=== PATIENT | female | born 1970 | race Asian ===

== ENCOUNTER 2017-02-27 22:07 | Outpatient (CLI) | payer OTHER ==
[2017-02-27 23:08] LABS: AMORPHOUS SEDIMENT,URINE TRACE /HPF; APPEARANCE,URINE SLIGHTLY-CLOUDY; BILIRUBIN,URINE NEGATIVE (NEGATIVE); COLOR,URINE YELLOW; GLUCOSE, URINE NEGATIVE (NEGATIVE); KETONES,URINE NEGATIVE (NEGATIVE); LEUKOCYTE ESTERASE,URINE SMALL (NEGATIVE); NITRITE,URINE NEGATIVE (NEGATIVE); PROTEIN,URINE NEGATIVE (NEGATIVE); URINE SPECIFIC GRAVITY 1.021; UROBILINOGEN,URINE NEGATIVE mg/dL (<2.0)
--- NOTE | 2017-02-27 23:26 | Non Stress Test Report ---
Non Stress Test Datetime Report Generated by CPN: 02/27/2017 23:25 DEMOGRAPHIC EGA NST: 35.4 INDICATION Indication for Study: Ordered by Provider; Other Indication for Study (NST) Other: LC MONITORING Monitor Explained: Monitor Explained; Test Explained; Patient Verbalized Understanding Time on Monitor: 02/27/2017 22:30 Time off Monitor: 02/27/2017 23:18 NST Duration: 48 NST INTERVENTIONS NST Interventions: PO Hydration; Reposition Patient Physician Notified NST: Dr Trujillo BABY A: [id number] BABY A Movement : Present Contraction Frequency : Irregular with irritability Accelerations : 15X15 Decelerations : None Variability : Moderate 6-25bpm NST Review: Meets Criteria for Reactive NST NST Review and Verified By : Adelaida Rashid RN Results: Reactive NST REPORT Report Trigger: Send Report
[2017-02-27 23:42] LABS: URINE AMPHETAMINES SCREEN NEGATIVE; URINE BARBITURATES SCREEN NEGATIVE; URINE BENZODIAZEPINES SCREEN NEGATIVE; URINE COCAINE SCREEN NEGATIVE; URINE MARIJUANA (THC) SCREEN NEGATIVE; URINE METHADONE SCREEN NEGATIVE; URINE PHENCYCLIDINE SCREEN NEGATIVE
== END 2017-02-27 22:30 | disposition home or self-care (01) ==
LOC: LC 22:07
PROVIDERS: ATTEND Obstetrics & Gynecology
PROC: 4A1HXCZ Monitoring of Products of Conception, Cardiac Rate, External Approach (ICD-10-PCS; principal; 2017-02-27)
DX: O47.03 False labor before 37 completed weeks of gestation, third trimester (principal); O09.523 Supervision of elderly multigravida, third trimester; Z3A.35 35 weeks gestation of pregnancy
CPT/HCPCS: 80307; 81001

== ENCOUNTER 2017-03-06 10:18 | Outpatient (CLI) | payer OTHER ==
--- NOTE | 2017-03-06 11:02 | Non Stress Test Report ---
Non Stress Test Datetime Report Generated by CPN: 03/06/2017 11:01 DEMOGRAPHIC EGA NST: 36.4 INDICATION Indication for Study: Ordered by Provider MONITORING Monitor Explained: Monitor Explained; Test Explained; Patient Verbalized Understanding Time on Monitor: 03/06/2017 10:30 Time off Monitor: 03/06/2017 10:50 NST Duration: 20 NST INTERVENTIONS NST Interventions: PO Hydration Physician Notified NST: Dr. Becker BABY A: [id number] BABY A Movement : Present Contraction Frequency : irregular FHR Baseline : 135 Accelerations : 15X15 Decelerations : None Variability : Moderate 6-25bpm NST Review: Meets Criteria for Reactive NST NST Review and Verified By : Don BELLO NST Results: Reactive NST REPORT Report Trigger: Send Report
== END 2017-03-06 11:00 | disposition home or self-care (01) ==
LOC: LC 10:18
PROVIDERS: ATTEND Student in an Organized Health Care Education/Training Program
PROC: 4A1HXCZ Monitoring of Products of Conception, Cardiac Rate, External Approach (ICD-10-PCS; principal; 2017-03-06)
DX: O47.03 False labor before 37 completed weeks of gestation, third trimester (principal); O09.523 Supervision of elderly multigravida, third trimester; Z3A.36 36 weeks gestation of pregnancy
CPT/HCPCS: 59025

== ENCOUNTER 2017-03-10 14:31 | Outpatient (CLI) | payer OTHER ==
[2017-03-10 15:23] LABS: AMORPHOUS SEDIMENT,URINE TRACE /HPF; APPEARANCE,URINE SLIGHTLY-CLOUDY; BILIRUBIN,URINE NEGATIVE (NEGATIVE); COLOR,URINE YELLOW; GLUCOSE, URINE NEGATIVE (NEGATIVE); KETONES,URINE NEGATIVE (NEGATIVE); LEUKOCYTE ESTERASE,URINE TRACE (NEGATIVE); NITRITE,URINE NEGATIVE (NEGATIVE); PROTEIN,URINE NEGATIVE (NEGATIVE); URINE SPECIFIC GRAVITY 1.021; UROBILINOGEN,URINE NEGATIVE mg/dL (<2.0)
[2017-03-10 15:28] LABS: AMNISURE (ROM) NEGATIVE (NEGATIVE)
[2017-03-10 15:46] LABS: URINE AMPHETAMINES SCREEN NEGATIVE; URINE BARBITURATES SCREEN NEGATIVE; URINE BENZODIAZEPINES SCREEN NEGATIVE; URINE COCAINE SCREEN NEGATIVE; URINE MARIJUANA (THC) SCREEN NEGATIVE; URINE METHADONE SCREEN NEGATIVE; URINE PHENCYCLIDINE SCREEN NEGATIVE
--- NOTE | 2017-03-10 15:51 | Non Stress Test Report ---
Non Stress Test Datetime Report Generated by CPN: 03/10/2017 15:51 DEMOGRAPHIC EGA NST: 37.1 INDICATION Indication for Study: Ordered by Provider; Other Indication for Study (NST) Other: AMA; REPEAT NST MONITORING Monitor Explained: Monitor Explained; Test Explained; Patient Verbalized Understanding Time on Monitor: 03/10/2017 14:51 Time off Monitor: 03/10/2017 15:41 NST Duration: 50 NST INTERVENTIONS NST Interventions: PO Hydration; Reposition Patient Physician Notified NST: Don FRASER CNM BABY A: [id number] Movement : Present Contraction Frequency : X2 FHR Baseline : 145 Accelerations : 15X15 Decelerations : None Variability : Moderate 6-25bpm NST Review: Meets Criteria for Reactive NST NST Review and Verified By : ERNA ARAUJO RN NST Results: Reactive NST REPORT Report Trigger: Send Report
== END 2017-03-10 15:49 | disposition home or self-care (01) ==
LOC: LC 14:31
PROVIDERS: ATTEND Obstetrics & Gynecology Gynecology
PROC: 4A1HXCZ Monitoring of Products of Conception, Cardiac Rate, External Approach (ICD-10-PCS; principal; 2017-03-10)
DX: O09.523 Supervision of elderly multigravida, third trimester (principal); Z3A.37 37 weeks gestation of pregnancy
CPT/HCPCS: 59025; 80307; 81001; 84112

== ENCOUNTER 2017-03-17 16:59 | Inpatient (IN) | payer OTHER ==
[2017-03-17] MEDS ORDERED: DINOPROSTONE 10 MG VAGINAL INSERT.SR PV PRN (17:16)
[2017-03-17] MEDS ORDERED: RINGERS SOLUTION,LACTATED 300 ML IV ONE (17:16)
[2017-03-17] MEDS ORDERED: DINOPROSTONE 10 MG VAGINAL INSERT.SR ONE (17:51)
[2017-03-17 17:55] LABS: ABSOLUTE BASOPHILS # (AUTO) 0.1 10^3/uL (0.0-0.2); ABSOLUTE LYMPHOCYTES (AUTO) 1.5 10^3/uL (0.5-4.7); ABSOLUTE MONOCYTES (AUTO) 0.5 10^3/uL (0.1-1.4); ABSOLUTE NEUT (AUTO) 6.3 10^3/uL (1.7-8.2); BASOPHILS % (AUTO) 0.6 % (0-2); EOSINOPHILS % (AUTO) 0.3 % (0-6); HEMATOCRIT 37.2 % (36.0-47.0); HEMOGLOBIN 12.6 g/dL (12.0-15.5); LYMPHOCYTES % (AUTO) 18.2 % (13-45); MEAN CORPUSCULAR HEMOGLOBIN 30.9 pg (27.0-33.4); MEAN CORPUSCULAR HGB CONC 33.8 g/dL (32.0-36.0); MEAN CORPUSCULAR VOLUME 91 fl (80-97); MONOCYTES % (AUTO) 5.4 % (3-13); PLATELET COUNT 224 10^3/uL (150-450); RED BLOOD COUNT 4.07 10^6/uL (3.72-5.28); RED CELL DISTRIBUTION WIDTH 13.1 % (11.5-14.0); SEGMENTED NEUTROPHILS % (AUTO) 75.5 % (42-78); TOTAL CELLS COUNTED % (AUTO) 100 %; WHITE BLOOD COUNT 8.3 10^3/uL (4.0-10.5)
[2017-03-17 18:31] LABS: APPEARANCE,URINE SLIGHTLY-CLOUDY; BILIRUBIN,URINE NEGATIVE (NEGATIVE); COLOR,URINE YELLOW; GLUCOSE, URINE NEGATIVE (NEGATIVE); KETONES,URINE NEGATIVE (NEGATIVE); LEUKOCYTE ESTERASE,URINE TRACE (NEGATIVE); NITRITE,URINE NEGATIVE (NEGATIVE); PROTEIN,URINE NEGATIVE (NEGATIVE); URINE SPECIFIC GRAVITY 1.027; UROBILINOGEN,URINE NEGATIVE mg/dL (<2.0)
[2017-03-17 18:36] LABS: URINE AMPHETAMINES SCREEN NEGATIVE; URINE BARBITURATES SCREEN NEGATIVE; URINE BENZODIAZEPINES SCREEN NEGATIVE; URINE COCAINE SCREEN NEGATIVE; URINE MARIJUANA (THC) SCREEN NEGATIVE; URINE METHADONE SCREEN NEGATIVE; URINE PHENCYCLIDINE SCREEN NEGATIVE
[2017-03-17] MEDS: RINGERS SOLUTION,LACTATED 1,000 ML IV PRN (23:24)
[2017-03-18] MEDS ORDERED: BUPIVACAINE HCL 0.25 % INJ/PF (2.5 MG/1 ML) 30 ML VIAL ONE (09:33)
[2017-03-18] MEDS ORDERED: FENTANYL/BUPIVACAINE/NS/PF 200 MCG/100 ML RTUINJ EPI ONE (09:33)
[2017-03-18] MEDS ORDERED: EPHEDRINE SULFATE INJ 50 MG/1 ML AMPULE ONE (09:33)
[2017-03-18] MEDS: RINGERS SOLUTION,LACTATED 1,000 ML IV PRN ×2 (10:00→16:40)
[2017-03-18] MEDS ORDERED: MISOPROSTOL 0.2 MG TABLET ONE (10:59)
[2017-03-18] MEDS ORDERED: OXYTOCIN/NORMAL SALINE 20 UNIT/1,000 ML RTUINJ ONE (10:59)
[2017-03-18] MEDS ORDERED: LIDOCAINE 1% INJ-PF (10 MG/ML) 30 ML SDV ONE (10:59)
--- NOTE | 2017-03-18 11:03 | L&D Progress Notes ---
PROGRESS NOTES Datetime Report Generated by CPN: 03/18/2017 11:03 PROGRESS NOTE Impression: Normal Progression of Labor Procedures: Artificial ROM Plan Other: start pit Vital Signs : Reviewed Comment: Feeling much better with epidural SVE AROM, bloody fluid Start pitocin Small amount bloody fluid VAGINAL EXAM Dilatation: 6 Dilatation: 1 Effacement: 100 Effacement: 0 Station: 0 Station: -1 Contractions: 2-5 MEMBRANES Pooling: Negative Membranes: Ruptured Membranes: Intact Amniotic Fluid Color: Bloody FETUS A FHR - Baseline: 145 Monitoring: External US Accelerations: 15X15 Decelerations: None : 38.0 Estimated Weight (gm): 2800 Presentation: Vertex SIGNATURE SIGNATURE: [id number] SIGNATURE: ,[id number] SIGNATURE: [id number] SIGNATURE: ,[id number] Assignment: Shahana Becker MD Signature: with User ID: [email or web address] : with User ID: [email or web address]
[2017-03-18] MEDS: OXYTOCIN/NORMAL SALINE 20 UNIT/1,000 ML RTUINJ IV PRN ×2 (11:08→16:40)
[2017-03-18] MEDS ORDERED: ACETAMINOPHEN WITH CODEINE #3 TABLET PO PRN ×2 (15:18)
[2017-03-18] MEDS ORDERED: ACETAMINOPHEN 650 MG SUPP.RECT PR PRN (15:18)
[2017-03-18] MEDS ORDERED: PROMETHAZINE HCL 25 MG TABLET PO PRN (15:18)
[2017-03-18] MEDS ORDERED: GLYCERIN/WITCH HAZEL LEAF 1 EACH MED..PAD TP PRN (15:18)
[2017-03-18] MEDS ORDERED: MAGNESIUM HYDROXIDE SUSP 30 ML UDCUP PO PRN (15:18)
[2017-03-18] MEDS ORDERED: DIBUCAINE 1% OINTMENT 28 GM TP PRN (15:18)
[2017-03-18] MEDS ORDERED: NA PHOS,M-B/NA PHOS,DI-BA (ADULT) 133 ML ENEMA PR PRN (15:18)
[2017-03-18] MEDS ORDERED: OXYTOCIN/NORMAL SALINE 20 UNIT/1,000 ML RTUINJ IV PRN (15:18)
[2017-03-18] MEDS ORDERED: MEASLES,MUMPS&RUBELLA VACC/PF 0.5 ML VIAL SUBCUT PRN (15:18)
[2017-03-18] MEDS ORDERED: PROMETHAZINE HCL 25 MG SUPP.RECT PR PRN (15:18)
[2017-03-18] MEDS ORDERED: DIPHENHYDRAMINE HCL 25 MG CAPSULE PO PRN (15:18)
[2017-03-18] MEDS ORDERED: PSEUDOEPHEDRINE HCL 30 MG TABLET PO PRN (15:18)
[2017-03-18] MEDS ORDERED: BENZOCAINE/MENTHOL AEROSOL SPRAY 56 ML TOP PRN (15:18)
[2017-03-18] MEDS ORDERED: ZOLPIDEM TARTRATE 5 MG TABLET PO PRN (15:18)
[2017-03-18] MEDS ORDERED: PROMETHAZINE HCL INJ 25 MG/1 ML VIAL IV PRN (15:18)
[2017-03-18] MEDS ORDERED: DIPH/PERTUSS(ACELL)/TETANUS VAC/PF 0.5 ML SYR (>=10YO) IM PRN (15:18)
--- NOTE | 2017-03-18 16:54 | Delivery Summary ---
Del Sum A-C Datetime Report Generated by CPN: 03/18/2017 16:53 DELIVERY PERSONNEL DELIVERY PERSONNEL: [id number] Delivery Doctor:: Dianelys Collazo CNM Labor and Delivery Nurse:: ACE Woody Labor and Delivery Nurse:: Emerita Pemberton RN Nursery Nurse:: Lucero Han RN Ux Developer/WINDSHIELD TECHNICIAN: Carmen Preston, ST MATERNAL INFORMATION Delivery Anesthesia: Epidural Medications After Delivery: Pitocin Bolus-Please Comment; Other-Please Comment Meds After Delivery Comment: PPitocin 20 units in 1000 mlnss, Cytotec 1000 mcg pr by provider Estimated Blood Loss (ml): 450 Maternal Complications: Other Other Maternal Complications: AMA Provider Comments: of viable female infant, head, shoulders, and body delivered without difficulty. Infant with spontaneous cry and respirations to maternal abodmen, cord clamped X2 and infant cut free after 2 min delay. Spontaneous delivery of placenta via paulson mechanism, appears intact 3 VC. Vagina and perineum inspected laceration repaired as above. Cytotec 1000 mcg rectally for heavy bleeding, hemostasis with external fundal massage and IV pitocin. Mother and infant in stable condition, routine pp care. LABOR SUMMARY EDC: 03/30/2017 00:00 No. Babies in Womb: 1 Attempted: No Labor Anesthesia: Epidural LABOR INFORMATION Reason for Induction: Oligohydramnios Onset of Labor: 03/18/2017 09:00 Complete Dilatation: 03/18/2017 09:00 Cervical Ripening Agents: Cervidil Oxytocin: Induction Group B Beta Strep: negative Antibiotics # of Doses: 0 Steroids Given: None Reason Steroids Not Administered: Not Applicable MEMBRANES Membranes Rupture Method: Artificial Rupture of Membranes: 03/18/2017 10:50 Length of Rupture (hr): 4.42 Amniotic Fluid Color: Bloody Amniotic Fluid Amount: Scant Amniotic Fluid Odor: Normal STAGES OF LABOR Stage 1 hr: 0 Stage 1 min: 0 Stage 2 hr: 6 Stage 2 min: 15 Stage 3 hr: 0 Stage 3 min: 3 Total Time in Labor hr: 6 Total Time in Labor min: 18 VAGINAL DELIVERY Episiotomy: None Laceration #1: Perineal Laceration Extension #1: First Degree Laceration #2: None Laceration #3: None Laceration Repair: Yes Laceration Repair Note: Repaired with 2-0 chromic in usual fashion using epidural. Sponge Count Correct: N/A Sharps Count Correct: N/A CSECTION DELIVERY Primary Indication: N/A Secondary Indication: N/A CSection Incidence: N/A Labor: N/A Elective: N/A CSection Incision: N/A BABY A INFORMATION Infant Delivery Date/Time: 03/18/2017 15:15 Method of Delivery: Vaginal Born in Route : No : N/A Forceps: N/A Vacuum Extraction: N/A Shoulder Dystocia : No PRESENTATION/POSITION BABY A Presentation: Cephalic Cephalic Presentation: Vertex Vertex Position: Left Occipital Anterior Breech Presentation: N/A PLACENTA INFORMATION BABY A Placenta Delivery Time : 03/18/2017 15:18 Placenta Method of Delivery: Spontaneous Placenta Status: Delivered SCORES BABY A Heart Rate 1 min: >100 bpm Resp Effort 1 min: Good Cry Reflex Irritability 1 min: Cough or Sneeze or Pulls Away Muscle Tone 1 min: Active Motion Color 1 min: Body Nambe, Extremities Blue Resuscitation Effort 1 min: Tactile Stimulation SCORE 1 MIN: 9 Heart Rate 5 min: >100 bpm Resp Effort 5 min: Good Cry Reflex Irritability 5 min: Cough or Sneeze or Pulls Away Muscle Tone 5 min: Active Motion Color 5 min: Body Nambe, Extremities Blue SCORE 5 MIN: 9 INFORMATION BABY A Gestational Age at Delivery: 38.2 Gestational Status: Early Term- 37- 38.6 Weeks Outcome : Liveborn Condition : Stable Infant Sex: Female IDENTIFICATION BABY A Infant Verification Date/Time: 03/18/2017 15:54 ID Band Number: [id number] Mother's Name Verified: Yes RN Verifying Infant: Leanna Camp [facility] Additional Verifying Personnel: Jessica Preston FRUIT FARMER WEIGHT/LENGTH BABY A Infant Birthweight (gm): 2820 Infant Weight (lb): 6 Weight (oz): 3 Length (in): 19.00 Length (cm): 48.26 CORD INFORMATION BABY A No. Cord Vessels: 3 Nuchal Cord : N/A Cord Blood Taken: Yes-For Storage (Mom's Blood type +) Infant Suction: Mouth ASSESSMENT BABY A Infant Complications: None Physical Findings at Delivery: Within Normal Limits Respirations: Appears Normal Skin to Skin: Yes Skin to Skin Time (min): 60 Security Solutions Architect/ALS Called : No Infant Care By: Adriana Han RN Transferred To: Remains with Mother BABY B INFORMATION : N/A SIGNATURES Assignment: Shahana Becker MD Signature: with User ID: [email or web address] : with User ID: [email or web address]
[2017-03-18] MEDS ORDERED: DOCUSATE SODIUM 100 MG CAPSULE ONE (17:20)
[2017-03-18] MEDS ORDERED: FERROUS SULFATE 325 MG TABLET PO ONE ×2 (17:20→17:27)
[2017-03-18] MEDS ORDERED: IBUPROFEN 800 MG TABLET ONE ×2 (17:20→17:28)
[2017-03-18] MEDS: DOCUSATE SODIUM 100 MG CAPSULE PO SCH (17:22)
[2017-03-18] MEDS: FERROUS SULFATE 325 MG TABLET PO SCH (17:24)
--- NOTE | 2017-03-18 17:48 | Admission Physical ---
Datetime Report Generated by CPN: 03/18/2017 17:48 CURRENT ADMISSION Chief Complaint: Other Indication for Induction: Oligohydramnios Indication for Induction: Term, Intrauterine ; Induction of Labor Admit Plan: Admit to Unit; Initiate Labor Induction Protocol ALLERGIES Medication Allergies: No Medication Allergies: No Known Allergies (03/10/2017) Medication Allergies: No Known Allergies (03/06/2017) Medication Allergies: No Known Allergies (02/27/2017) Latex: No Latex Allergies Food Allergies: None Environmental Allergies: None OBSTETRICAL HISTORY EDC: 03/30/2017 00:00 : 3 Para: 1 Term: 0 : 1 SAB: 0 IAB: 0 Ectopic: 0 Livin Cesareans: 0 VBACs: 0 Multiple Births: 0 Gestational Diabetes: No Rh Sensitization: No Incompetent Cervix: No NAVIN: No Infertility: No ART Treatment: No Uterine Anomaly: No IUGR: No Hx Previous C/S: No Macrosomia: No Hx Loss/Stillborn: No PIH: No Hx : No Placenta Previa/Abruption: No Depression/PP Depression: No PTL/PROM: Yes Post Hemorrhage: No Current Procedures: Ultrasound; NST Obstetrical History Comments: G1: 2001 36 week male 5 lb 14 oz G2: 2011 SAB G3: Current, low lying placenta resolved, vag delivery appropriate per MFM SEE RECORDS Alcohol: No Marijuana : No Cocaine: No Other Illicit Drugs: No Cigarettes: Former Smoker. [id number] MEDICAL HISTORY Diabetes: No Blood Transfusion: No Pulmonary Disease (Asthma, TB): No Breast Disease: No Hypertension: No Scowman Surgery: Yes Heart Disease: No Hosp/Surgery: Yes Autoimmune Disorder: No Anesthetic Complications: No Kidney Disease: Yes Abnormal Pap Smear: Yes Neuro/Epilepsy: No Psychiatric Disorders: No Other Medical Diseases: No Hepatitis/Liver Disease: No Significant Family History: No Varicosities/Phlebitis: No Trauma/Violence : No Thyroid Dysfunction: No Medical History Comments: abn pap 1998; laparoscopy for endometriosis x3 [id number]; gallbladder out 2002; UTI this x2; INFECTIOUS HISTORY Gonorrhea: No Genital Herpes: No Chlamydia: Yes Tuberculosis: No Syphilis: No Hepatitis: No HIV/AIDS Exposure: No Rash or Viral Illness: No HPV: No Infectious History Comments: chlam- date unknown PHYSICAL EXAM General: Normal HEENT: Normal Neurologic: Normal Thyroid: Normal Heart: Normal Lungs: Normal Breast: Deferred Back: Normal Abdomen: Normal Genitourinary Exam: Normal Extremities: Normal DTRs: Normal Pelvic Type: Adequate Vital Signs: Reviewed VAGINAL EXAM Dilatation: 6 Dilatation: 1 Effacement: 100 Effacement: 0 Station: 0 Station: -1 Contraction Comments: 2-5 MEMBRANES Pooling: Negative Membranes: Ruptured Membranes: Intact Amniotic Fluid Color: Bloody FETUS A EGA: 38.1 Monitoring: External US FHR- Baseline: 140 Variability: Absent - Undetectable Decelerations: None FHR Category: Category I Estimated Weight (gm): 2800 Presentation: Vertex Admit Comment: cervidil tonight for induction PLANS FOR LABOR AND DELIVERY Labor and Delivery: None Pain Management: Epidural Feeding Preference: Breast Benefit of Breast Feed Discussed: Yes Circumcision: No INFORMED CONSENT Signature: with User ID: [email or web address]
[2017-03-18] MEDS: IBUPROFEN 800 MG TABLET PO SCH (23:25)
[2017-03-18] MEDS: FAMOTIDINE 20 MG TABLET PO SCH (23:36)
[2017-03-19] MEDS: IBUPROFEN 800 MG TABLET PO SCH ×3 (06:49→22:55)
[2017-03-19 07:28] LABS: HEMATOCRIT 32.2 % (36.0-47.0); MEAN CORPUSCULAR HEMOGLOBIN 31.6 pg (27.0-33.4); MEAN CORPUSCULAR HGB CONC 34.2 g/dL (32.0-36.0); MEAN CORPUSCULAR VOLUME 92 fl (80-97); PLATELET COUNT 171 10^3/uL (150-450); RED BLOOD COUNT 3.48 10^6/uL (3.72-5.28); RED CELL DISTRIBUTION WIDTH 13.2 % (11.5-14.0); WHITE BLOOD COUNT 13.6 10^3/uL (4.0-10.5)
--- NOTE | 2017-03-19 09:41 | PDOC PROGRESS REPORT ---
Subjective-OB Subjective: Post Delivery Day: 46 year old. Denies any needs at this time Physical Exam (OB) Vital Signs: Temp Pulse Resp BP Pulse Ox 98.0 F 82 17 106/60 100 03/19/17 07:42 03/19/17 07:42 03/19/17 07:42 03/19/17 07:42 03/19/17 07:42 Intake & Output 03/18/17 03/19/17 03/20/17 06:59 06:59 06:59 Weight 65 kg - PIH/Pre-Eclampsia DTR's: 1 + Clonus: Negative Headache: Absent Epigastric Pain: No Visual Changes: No - Lochia Lochia Amount: Small 10-25 ml Lochia Color: Rubra/Red - Abdomen Description: Soft, Flat Hernia Present: No Bowel Sounds: Normoactive Flatus Presence: Present Stool: No Fundal Description: Firm, Midline Fundal Height: u/u - u/2 - Respiratory Breath sounds: Clear Objective-Diagnostic Laboratory: 03/19/17 07:04 03/19/17 07:04 WBC 13.6 H RBC 3.48 L Hgb 11.0 L Hct 32.2 L MCV 92 MCH 31.6 MCHC 34.2 RDW 13.2 Plt Count 171
[2017-03-19] MEDS: SENNOSIDES/DOCUSATE 8.6-50 MG 1 EACH TABLET PO SCH (09:55)
[2017-03-19] MEDS: FERROUS SULFATE 325 MG TABLET PO SCH ×2 (09:56→17:37)
[2017-03-19] MEDS: PRENATAL VITAMIN W DHA CAPSULE PO SCH (09:56)
[2017-03-19] MEDS: DOCUSATE SODIUM 100 MG CAPSULE PO SCH ×2 (09:56→17:38)
[2017-03-19] MEDS: FAMOTIDINE 20 MG TABLET PO SCH ×2 (09:57→22:55)
[2017-03-20] MEDS: IBUPROFEN 800 MG TABLET PO SCH (06:35)
[2017-03-20] MEDS: FAMOTIDINE 20 MG TABLET PO SCH (10:46)
[2017-03-20] MEDS: DOCUSATE SODIUM 100 MG CAPSULE PO SCH (10:47)
[2017-03-20] MEDS: FERROUS SULFATE 325 MG TABLET PO SCH (10:47)
[2017-03-20] MEDS: SENNOSIDES/DOCUSATE 8.6-50 MG 1 EACH TABLET PO SCH (10:47)
[2017-03-20] MEDS: PRENATAL VITAMIN W DHA CAPSULE PO SCH (10:47)
--- NOTE | 2017-03-20 12:19 | PDOC PROGRESS REPORT ---
Subjective-OB Subjective: Post Delivery Day: 46 year old. Denies any needs at this time. Ready to go home. Physical Exam (OB) Vital Signs: Temp Pulse Resp BP Pulse Ox 98.0 F 79 16 117/74 99 03/19/17 19:31 03/19/17 19:31 03/19/17 19:31 03/19/17 19:31 03/19/17 19:31 Intake & Output 03/19/17 03/20/17 03/21/17 06:59 06:59 06:59 Weight 65 kg - PIH/Pre-Eclampsia DTR's: 1 + Clonus: Negative Headache: Absent Epigastric Pain: No Visual Changes: No - Lochia Lochia Amount: Scant < 10 ml Lochia Color: Rubra/Red - Abdomen Description: Soft, Flat Hernia Present: No Bowel Sounds: Normoactive Flatus Presence: Present Stool: Yes Fundal Description: Firm, Midline Fundal Height: u/u - u/2 Objective-Diagnostic Laboratory: 03/19/17 07:04
--- NOTE | 2017-03-20 12:28 | PDOC DISCHARGE SUMMARY ---
Final Diagnosis Discharge Date: 03/20/17 - Final Diagnosis (1) AMA (advanced maternal age) multigravida 35+ Is this a current diagnosis for this admission?: Yes (2) Oligohydramnios Is this a current diagnosis for this admission?: Yes (3) Is this a current diagnosis for this admission?: Yes (4) Vaginal delivery Is this a current diagnosis for this admission?: Yes Discharge Data - Discharge Medication Home Medications: Vit/Iron Fum/Folic AC [ Tablet] 1 tab PO DAILY 02/27/17 Gestational Age: 38.2 wks Reason(s) for Admission: Induction of Labor, Obstetric Complications Procedures: Ultrasound Intrapartum Procedure(s): Spontaneous Vaginal Delivery Complication(s): Laceration-Perineal Laceration-Degree: 1st - Data Baby 1 Female at 1 minute: 9 at 5 minutes: 9 Weight: 2.807 kg Home with Mother: Yes Complications: No - Diagnosis Test Laboratory: Temp Pulse Resp BP Pulse Ox 98.0 F 79 16 117/74 99 03/19/17 19:31 03/19/17 19:31 03/19/17 19:31 03/19/17 19:31 03/19/17 19:31 03/17/17 03/17/17 03/19/17 17:08 17:45 07:04 RBC 4.07 3.48 L Hgb 12.6 11.0 L Hct 37.2 32.2 L Urine Opiates Screen NEGATIVE - Discharge information/Instructions Discharge Activity: Activity As Tolerated, Balance Activity w/Rest, Pelvic Rest , Slowly Increase Activity, No tub bath Discharge Diet: Regular Disposition: HOME, SELF-CARE Follow up with: [facility] in: 4, Weeks
[2017-03-20 12:48] VITALS: BP 106/64
== END 2017-03-20 13:55 | disposition home or self-care (01) | DRG 775 ==
LOC: LR 16:59 → 2S 03-18 17:46
PROVIDERS: ADMIT Obstetrics & Gynecology; ATTEND Obstetrics & Gynecology
PROC: 4A1HXCZ Monitoring of Products of Conception, Cardiac Rate, External Approach (ICD-10-PCS; 2017-03-17)
PROC: 10E0XZZ Delivery of Products of Conception, External Approach (ICD-10-PCS; principal; 2017-03-18)
PROC: 0HQ9XZZ Repair Perineum Skin, External Approach (ICD-10-PCS; 2017-03-18)
PROC: 10907ZC Drainage of Amniotic Fluid, Therapeutic from Products of Conception, Via Natural or Artificial Opening (ICD-10-PCS; 2017-03-18)
PROC: 3E0P7VZ Introduction of Hormone into Female Reproductive, Via Natural or Artificial Opening (ICD-10-PCS; 2017-03-18)
PROC: 3E033VJ Introduction of Other Hormone into Peripheral Vein, Percutaneous Approach (ICD-10-PCS; 2017-03-18)
PROC: 10907ZC Drainage of Amniotic Fluid, Therapeutic from Products of Conception, Via Natural or Artificial Opening (ICD-10-PCS; 2017-03-18)
DX: O41.03X0 Oligohydramnios, third trimester, not applicable or unspecified (principal); O70.0 First degree perineal laceration during delivery; Z87.891 Personal history of nicotine dependence; Z3A.38 38 weeks gestation of pregnancy; Z37.0 Single live birth
CPT/HCPCS: 36415; 80307; 81005; 85025; 85027; 86592; 86850; 86900; 86901; J2590; J3490